=== PATIENT | male | born 1950 | race Caucasian/White ===

== ENCOUNTER 2017-12-18 02:30 | Emergency (ER) | payer MEDICARE, SELFPAY ==
[2017-12-18 02:37] VITALS: BP 163/74; PULSE 83; RESP 20; TEMP 36.8; O2SAT 96
--- NOTE | 2017-12-18 02:41 | DI.RAD.S_ITS ---
PROCEDURE: XR SHOULDER LT MIN 2V INDICATIONS: 67-year-old male with left shoulder pain after fall. TECHNIQUE: 3 views of the shoulder were acquired. COMPARISON: None. FINDINGS: Bones: Mildly displaced comminuted left humeral head and neck fracture is present. Nonacute left third through eighth rib healed fractures are present. No suspicious bony lesions. Soft tissues: No suspicious soft tissue calcifications. There is left axillary artery atherosclerosis. IMPRESSION: 1. Comminuted left humeral head and neck fracture with mild displacement. 2. Multiple nonacute healed left rib fractures. Dictated by: Viktor Arias M.D. on 12/18/2017 at 7:56 Approved by: Viktor Arias M.D. on 12/18/2017 at 7:58
[2017-12-18 02:42] VITALS: PULSE 83; RESP 20; TEMP 36.8; O2SAT 96; BMI 22.2
[2017-12-18] MEDS: HYDROCODONE/ACET 5/325 PREPACK 1 BOTTLE MISC (03:26)
--- NOTE | 2017-12-18 03:26 | ED_ITS ---
HPI - Extremity Injury (Upper) General Chief Complaint: Extremity Injury, Upper Stated Complaint: Lt Shoulder injury/ GLF Time Seen by Provider: 12/18/17 02:52 Source: patient and RN notes reviewed Mode of arrival: ambulatory Limitations: no limitations History of Present Illness HPI narrative: Patient is a 67-year-old male who presents with left shoulder pain. He tripped over 1 of the dog did in the recliner and has coffee table on his left shoulder. He also scraped his left knee but no other injuries. He has no numbness or tingling in his hand. But extreme pain in his shoulder no head injury. MD complaint: injury to: left and shoulder Related Data Previous Rx's Medication Instructions Recorded hydrocodone-acetaminophen [[place]] 1 tab PO Q6H #10 tab 12/18/17 Review of Systems Review of Systems All systems reviewed & are unremarkable except as noted in HPI and below Constitutional Denies chills, Denies fever(s), Denies headache(s), Denies lethargy and Denies weakness ENT Ears, Nose, Mouth, and Throat: Denies headache(s) Cardiovascular Denies chest pain, Denies syncope and Denies dyspnea Respiratory Denies cough and Denies dyspnea Gastrointestinal Gastrointestinal: Denies nausea and Denies vomiting Musculoskeletal Reports as per HPI Integumentary/Breasts Denies erythema, Denies rash and Denies wounds Neurologic Denies syncope, Denies headache(s), Denies focal weakness and Denies weakness PFSH Medical History Diabetes (Acute) End stage renal disease on dialysis (Acute) Fistula of artery (Acute) Social History Smoking Status: Current every day smoker Exam Initial Vital Signs Initial Vital Signs: Vital Signs Temperature 98.3 F 12/18/17 02:37 Pulse Rate 83 12/18/17 02:37 Respiratory Rate 20 12/18/17 02:37 Blood Pressure 163/74 H 12/18/17 02:37 Pulse Oximetry 96 12/18/17 02:37 Const General: cooperative and frail appearing Nutritional Appearance: thin Orientation: alert, awake and oriented x3 HENMT Head: normal to inspection, normocephalic and atraumatic Eyes Pupils: PERRL EOM: EOM intact bilaterally Chest Chest: normal inspection of the chest Resp Effort & Inspection: normal respiratory effort and able to speak in complete sentences Auscultation: clear to auscultation bilaterally GI Palpation: soft Back/Spine/Pelvis Back: normal to inspection and No back tenderness Skin General: no rashes or lesions noted and No erythema Trauma: no lacerations or abrasions Extrem Left upper extremity: shoulder/upper arm Details: abnormal to inspection, tenderness, swelling Location: of the shoulder joint Location: anteriorly, axillary nerve sensory function normal and abnormal ROM; no ecchymosis, elbow/ forearm Details: normal to inspection and wrist Details: normal to inspection, normal vascular exam and radial pulse present Other: Fistula noted on left forearm there is a good thrill Procedures Orthopedic Splinting/Casting Injury #1: Side: left Upper Extremity Injury Location: shoulder Upper Extremity Immobilizer: sling/shoulder immobilizer Additional Comments: Neurovascular intact afterwards Course Orders Ordered: ED Orders 12/18/17 02:41 XR shoulder LT min 2V Stat Discontinued Medications Hydrocodone Bitart/Acetaminophen (Vicodin Prepack) 1 bottle MISC SEEINSTR ONE Stop: 12/18/17 03:10 Last Admin: 12/18/17 03:26 Dose: 1 bottle Vital Signs - 8 hr 12/18/17 02:37 12/18/17 02:42 Temperature 98.3 F 98.3 F Pulse Rate 83 83 Respiratory Rate 20 20 Blood Pressure [Right Arm] 163/74 H Pulse Oximetry 96 96 MDM - Extremity Injury (Upper) Imaging Data left shoulder x ray: Attestation: I personally reviewed and interpreted this imaging study as follows: My impression: Left humeral head neck fracture with complete displacement No other fracture No pneumothorax Discharge Plan Departure Patient Disposition: Home, Self-Care Clinical Impression: Closed fracture of head of left humerus Discharge Date/Time: 12/18/17 03:37 Interventions: ED Discharge Assessment Last Done: 12/18/17 03:36 Instructions: DI for Shoulder Fracture Activity Restrictions/Additional Instructions: *You have been diagnosed with left humeral head fracture *What to do: Keep arm in sling, may remove to shower if needed, ice 20 min at a time to help with swelling *Continue to take medications as directed Hydrocodone 1-2tablet every 6 hr if needed for pain *Follow up with your primary care provider in 2-3 days, call Orthopedics tomorrow to schedule follow-up appoint *Return to ER if you should have numbness, tingling, increased pain or any new, worsening or concerning symptoms Prescriptions: New hydrocodone-acetaminophen [[place]] 5-325 mg tablet 1 tab PO Q6H Qty: 10 RF: 0 Referrals: [facility] [Provider Group] Jovanny Shoemaker MD [Primary Care Provider] -
--- NOTE | 2017-12-18 12:00 | PC.NURSE ---
pharmacy called, reporting pt had refill hydrocodone/acetaminophen 7.5mg , 150pills last week. per dr hill do not fill hydrocodone #10.
== END 2017-12-18 03:37 | disposition home or self-care (01) ==
LOC: ED 03:45
PROVIDERS: Emergency Provider Emergency Medicine; Family Provider Internal Medicine; PCP Internal Medicine
DX: S42.292A Other displaced fracture of upper end of left humerus, initial encounter for closed fracture (principal); W01.0XXA Fall on same level from slipping, tripping and stumbling without subsequent striking against object, initial encounter
CPT/HCPCS: 73030; 99282; 99283

== ENCOUNTER → 2018-02-09 11:53 | Outpatient (CLI) | payer MEDICARE, SELFPAY ==
[2018-02-09 13:09] LABS: Cholesterol 109 mg/dL (140-199); HDL Cholesterol 55 mg/dL (40-60); LDL Cholesterol Calculated 32 mg/dL (<100); Triglycerides 112 mg/dL (35-150)
[2018-02-09 13:40] LABS: Prostate Specific Antigen Scrn 30.5 ng/mL (0.1-4.0)
== END ==
PROVIDERS: Family Provider Internal Medicine; PCP Internal Medicine; Visit Provider Internal Medicine
DX: Z00.00 Encounter for general adult medical examination without abnormal findings (principal); E08.21 Diabetes mellitus due to underlying condition with diabetic nephropathy; I10 Essential (primary) hypertension
CPT/HCPCS: 36415; 80061; G0103

== ENCOUNTER 2018-06-08 16:25 | Emergency (ER) | payer MEDICARE, SELFPAY ==
[2018-06-08] VITALS (11 sets, daily range): BP systolic 118–176; BP diastolic 65–121; PULSE 69–103; RESP 14–20; TEMP 36.8–37.1; O2SAT 93–99; BMI 20.7
--- NOTE | 2018-06-08 18:00 | ED_ITS ---
HPI - Recheck/Abnormal Lab/Rx <NITESH Salmon - Last Filed: 06/08/18 21:57> General Chief Complaint: Recheck/Abnormal Lab/Rx Stated Complaint: LOW HEMOGLOBIN Time Seen by Provider: 06/08/18 17:13 History of Present Illness HPI narrative: 68-year-old male with history of renal insufficiency and is everyday smoker sent here by collateral analyst due to a critical H&H low values. Patient had labs drawn yesterday while he was at dialysis and was told to come to emergency room for further evaluation. He denies any bleeding. He does state that he feels tired however he states that he normally does today after dialysis. He denies any pain or discomfort. he denies any fevers or chills no other concerns or complaints at this time frame. He states he is tolerating p.o. intake. complaint: abnormal lab Related Data Home Medications Medication Instructions Recorded Confirmed atorvastatin 40 mg PO DAILY 06/08/18 06/08/18 hydralazine 100 mg PO TID 06/08/18 06/08/18 hydrocodone-acetaminophen 1 tab PO 5XD PRN 06/08/18 06/08/18 insulin glargine [Lantus U-100 22 units SUBCUT DAILY 06/08/18 06/08/18 Insulin] insulin lispro [Humalog U-100 1 dose SUBCUT PRN PRN 06/08/18 06/08/18 Insulin] isosorbide mononitrate 60 mg PO BID 06/08/18 06/08/18 Allergies Allergy/AdvReac Type Severity Reaction Status Date / Time No Known Drug Allergies Allergy Verified 06/08/18 16:29 Review of Systems <NITESH Salmon - Last Filed: 06/08/18 21:57> Review of Systems Instructed to go to the emergency room due to low H&H Constitutional Denies chills, Denies fever(s), Denies lethargy and Denies weakness Eyes Denies change in vision, Denies eye discharge, Denies irritation and Denies loss of vision ENT Ears, Nose, Mouth, and Throat: Denies change in voice, Denies neck pain and Denies sore throat Cardiovascular Denies chest pain, Denies irregular heart rhythm, Denies lightheadedness, Denies palpitations, Denies dyspnea, Denies dyspnea on exertion and Denies orthopnea Respiratory Denies cough, Denies dyspnea, Denies dyspnea on exertion and Denies wheezing Gastrointestinal Gastrointestinal: Denies abdominal pain, Denies change in bowel habits, Denies diarrhea, Denies nausea and Denies vomiting Musculoskeletal Denies neck pain Integumentary/Breasts Denies pruritus, Denies erythema, Denies rash and Denies wounds Neurologic Denies confusion, Denies loss of vision and Denies weakness Psychiatric Denies anxiety, Denies confusion, Denies depression, Denies homicidal ideation and Denies suicidal ideation Endocrine Denies palpitations Hematologic/Lymphatic Denies easy bruising Allergic/Immunologic Denies wheezing Exam <PUMA SalmonP - Last Filed: 06/08/18 21:57> Initial Vital Signs Initial Vital Signs: Vital Signs Temperature 98.3 F 06/08/18 16:29 Pulse Rate 83 06/08/18 16:29 Respiratory Rate 15 06/08/18 16:29 Blood Pressure 129/65 06/08/18 16:29 Pulse Oximetry 99 06/08/18 16:29 Const General: cooperative and well developed Nutritional Appearance: well nourished Orientation: alert, awake, oriented x3 and not confused HENAR Mouth: oral mucosae normal and moist mucous membranes Eyes Conjunctivae: conjunctivae normal Sclera: sclerae normal Pupils: PERRL EOM: EOM intact bilaterally Resp Effort & Inspection: normal respiratory effort, able to speak in complete sentences, no respiratory distress and no use of accessory muscles Auscultation: clear to auscultation bilaterally, no rales, no rhonchi and no wheezes Cardio Rate: regular rate Rhythm: regular rhythm Heart Sounds: no click, no gallops, no murmurs and no rubs Skin General: no rashes or lesions noted, No jaundice and No petechiae Neuro General: alert, oriented x3, gait normal and no focal motor deficits Speech: speech normal Extrem General: full ROM, no clubbing, cyanosis or edema, no pedal edema and no calf tenderness <Mohan Lee DO - Last Filed: 06/08/18 23:20> Initial Vital Signs Initial Vital Signs: Vital Signs Temperature 98.3 F 06/08/18 16:29 Pulse Rate 83 06/08/18 16:29 Respiratory Rate 15 06/08/18 16:29 Blood Pressure 129/65 06/08/18 16:29 Pulse Oximetry 99 06/08/18 16:29 Course <PUMA SalmonP - Last Filed: 06/08/18 21:57> Orders Ordered: ED Orders 06/08/18 18:15 Complete Blood Count AUTO DIFF Stat Comprehensive Metabolic Panel Stat Packed Cells Stat Type and Screen Stat 06/08/18 22:55 Complete Blood Count AUTO DIFF Stat Vital Signs - 8 hr 06/08/18 16:29 06/08/18 18:00 06/08/18 19:10 Temperature 98.3 F Pulse Rate 83 77 103 H Respiratory Rate 15 20 Blood Pressure 129/65 Blood Pressure [Right Arm] 134/98 H Pulse Oximetry 99 98 93 06/08/18 19:43 06/08/18 20:05 06/08/18 20:44 Temperature 98.6 F 98.5 F 98.7 F Pulse Rate 70 77 75 Respiratory Rate 14 15 15 Blood Pressure 176/121 H 132/93 H Blood Pressure [Right Arm] 139/93 H Pulse Oximetry 97 06/08/18 21:04 06/08/18 21:07 06/08/18 21:26 Temperature 98.7 F 98.7 F 98.4 F Pulse Rate 77 70 69 Respiratory Rate 16 18 16 Blood Pressure 149/104 H 127/94 H Blood Pressure [Right Arm] 149/104 H Pulse Oximetry 97 06/08/18 21:53 06/08/18 22:20 Temperature 98.5 F 98.6 F Pulse Rate 69 70 Respiratory Rate 15 16 Blood Pressure 139/79 Blood Pressure [Right Arm] 118/99 H Pulse Oximetry 98 <Mohan Lee DO - Last Filed: 06/08/18 23:20> Orders Ordered: ED Orders 06/08/18 18:15 Complete Blood Count AUTO DIFF Stat Comprehensive Metabolic Panel Stat Packed Cells Stat Type and Screen Stat 06/08/18 22:55 Complete Blood Count AUTO DIFF Stat Vital Signs - 8 hr 06/08/18 16:29 06/08/18 18:00 06/08/18 19:10 Temperature 98.3 F Pulse Rate 83 77 103 H Respiratory Rate 15 20 Blood Pressure 129/65 Blood Pressure [Right Arm] 134/98 H Pulse Oximetry 99 98 93 06/08/18 19:43 06/08/18 20:05 06/08/18 20:44 Temperature 98.6 F 98.5 F 98.7 F Pulse Rate 70 77 75 Respiratory Rate 14 15 15 Blood Pressure 176/121 H 132/93 H Blood Pressure [Right Arm] 139/93 H Pulse Oximetry 97 06/08/18 21:04 06/08/18 21:07 06/08/18 21:26 Temperature 98.7 F 98.7 F 98.4 F Pulse Rate 77 70 69 Respiratory Rate 16 18 16 Blood Pressure 149/104 H 127/94 H Blood Pressure [Right Arm] 149/104 H Pulse Oximetry 97 06/08/18 21:53 06/08/18 22:20 Temperature 98.5 F 98.6 F Pulse Rate 69 70 Respiratory Rate 15 16 Blood Pressure 139/79 Blood Pressure [Right Arm] 118/99 H Pulse Oximetry 98 MDM - Recheck/Abnormal Lab/Rx <NITESH Salmon - Last Filed: 06/08/18 21:57> Lab Data Result diagrams: 06/08/18 22:55 06/08/18 18:15 Lab Results 06/08/18 06/08/18 06/08/18 Range/Units 18:15 18:15 18:15 WBC 7.6 (4.5-11.0) X10^3/uL RBC 1.85 L (4.5-5.9) X10^6/uL Hgb 6.2 L* (13.5-17.5) g/dL Hct 18.4 L* (41-53) % MCV 99.7 (80-100) fL MCH 33.3 (26-34) PG MCHC 33.4 (30-36) % RDW 14.8 (11.6-14.8) % Plt Count 355 (150-400) X10^3/uL Neut % (Auto) 67.0 (50-75) % Lymph % (Auto) 20.3 L (25-40) % [place] % (Auto) 6.1 (3-14) % Eos % (Auto) 5.6 H (2-4) % Baso % (Auto) 1.0 (0-2) % Neut # (Auto) 5100 (8853-6353) /uL Sodium 142 (137-145) mmol/L Potassium 4.0 (3.4-5.1) mmol/L Chloride 94 L (98-107) mmol/L Carbon Dioxide 34 H (22-32) mmol/L BUN 24 H (9-20) mg/dL Creatinine 5.00 H (0.66-1.25) mg/dL Estimated GFR 11.6 L (>60) mL/min BUN/Creatinine Ratio 4.8 L (6-22) Glucose 248 H (80-110) mg/dL Calcium 8.2 L (8.4-10.2) mg/dL Total Bilirubin 0.2 (0.2-1.3) mg/dL AST 16 L (17-59) IU/L ALT 25 (21-72) IU/L Alkaline Phosphatase 56 (38-126) U/L Total Protein 6.2 L (6.3-8.2) g/dL Albumin 3.7 (3.5-5.0) g/dL Globulin 2.5 (1.7-4.1) g/dL Albumin/Globulin Ratio 1.5 (1.0-2.8) Blood Type O Positive Antibody Screen Negative Crossmatch See Detail 06/08/18 Range/Units 22:55 WBC 7.1 (4.5-11.0) X10^3/uL RBC 2.74 L (4.5-5.9) X10^6/uL Hgb 9.2 L (13.5-17.5) g/dL Hct 25.9 L (41-53) % MCV 94.3 D (80-100) fL MCH 33.5 (26-34) PG MCHC 35.6 (30-36) % RDW 17.1 H (11.6-14.8) % Plt Count 355 (150-400) X10^3/uL Neut % (Auto) 61.0 (50-75) % Lymph % (Auto) 25.4 (25-40) % [place] % (Auto) 5.7 (3-14) % Eos % (Auto) 6.6 H (2-4) % Baso % (Auto) 1.3 (0-2) % Neut # (Auto) 4300 (5171-8910) /uL Sodium (137-145) mmol/L Potassium (3.4-5.1) mmol/L Chloride (98-107) mmol/L Carbon Dioxide (22-32) mmol/L BUN (9-20) mg/dL Creatinine (0.66-1.25) mg/dL Estimated GFR (>60) mL/min BUN/Creatinine Ratio (6-22) Glucose (80-110) mg/dL Calcium (8.4-10.2) mg/dL Total Bilirubin (0.2-1.3) mg/dL AST (17-59) IU/L ALT (21-72) IU/L Alkaline Phosphatase (38-126) U/L Total Protein (6.3-8.2) g/dL Albumin (3.5-5.0) g/dL Globulin (1.7-4.1) g/dL Albumin/Globulin Ratio (1.0-2.8) Blood Type Antibody Screen Crossmatch MDM Narrative Medical decision making narrative: CBC shows H&H of 6 and 18. He was Ordered 2 units of packed red blood cells. Originally desired to admit patient to inpatient for to for administration of the packed red blood cells and repeat of the CBC in the morning. hospice was not comfortable with patient be admitted to the inpatient [facility] of due to patient currently being on dialysis. blood was administered in the emergency room. Repeat CBC is ordered after administration of packed red blood cells. Due to change of shift care is turned over to Dr. Lee for further evaluation <Mohan Lee, DO - Last Filed: 06/08/18 23:20> Lab Data Attestation: I reviewed the patient's lab results. Lab Results 06/08/18 06/08/18 06/08/18 Range/Units 18:15 18:15 18:15 WBC 7.6 (4.5-11.0) X10^3/uL RBC 1.85 L (4.5-5.9) X10^6/uL Hgb 6.2 L* (13.5-17.5) g/dL Hct 18.4 L* (41-53) % MCV 99.7 (80-100) fL MCH 33.3 (26-34) PG MCHC 33.4 (30-36) % RDW 14.8 (11.6-14.8) % Plt Count 355 (150-400) X10^3/uL Neut % (Auto) 67.0 (50-75) % Lymph % (Auto) 20.3 L (25-40) % [place] % (Auto) 6.1 (3-14) % Eos % (Auto) 5.6 H (2-4) % Baso % (Auto) 1.0 (0-2) % Neut # (Auto) 5100 (5431-0772) /uL Sodium 142 (137-145) mmol/L Potassium 4.0 (3.4-5.1) mmol/L Chloride 94 L (98-107) mmol/L Carbon Dioxide 34 H (22-32) mmol/L BUN 24 H (9-20) mg/dL Creatinine 5.00 H (0.66-1.25) mg/dL Estimated GFR 11.6 L (>60) mL/min BUN/Creatinine Ratio 4.8 L (6-22) Glucose 248 H (80-110) mg/dL Calcium 8.2 L (8.4-10.2) mg/dL Total Bilirubin 0.2 (0.2-1.3) mg/dL AST 16 L (17-59) IU/L ALT 25 (21-72) IU/L Alkaline Phosphatase 56 (38-126) U/L Total Protein 6.2 L (6.3-8.2) g/dL Albumin 3.7 (3.5-5.0) g/dL Globulin 2.5 (1.7-4.1) g/dL Albumin/Globulin Ratio 1.5 (1.0-2.8) Blood Type O Positive Antibody Screen Negative Crossmatch See Detail 06/08/18 Range/Units 22:55 WBC 7.1 (4.5-11.0) X10^3/uL RBC 2.74 L (4.5-5.9) X10^6/uL Hgb 9.2 L (13.5-17.5) g/dL Hct 25.9 L (41-53) % MCV 94.3 D (80-100) fL MCH 33.5 (26-34) PG MCHC 35.6 (30-36) % RDW 17.1 H (11.6-14.8) % Plt Count 355 (150-400) X10^3/uL Neut % (Auto) 61.0 (50-75) % Lymph % (Auto) 25.4 (25-40) % [place] % (Auto) 5.7 (3-14) % Eos % (Auto) 6.6 H (2-4) % Baso % (Auto) 1.3 (0-2) % Neut # (Auto) 4300 (3275-9508) /uL Sodium (137-145) mmol/L Potassium (3.4-5.1) mmol/L Chloride (98-107) mmol/L Carbon Dioxide (22-32) mmol/L BUN (9-20) mg/dL Creatinine (0.66-1.25) mg/dL Estimated GFR (>60) mL/min BUN/Creatinine Ratio (6-22) Glucose (80-110) mg/dL Calcium (8.4-10.2) mg/dL Total Bilirubin (0.2-1.3) mg/dL AST (17-59) IU/L ALT (21-72) IU/L Alkaline Phosphatase (38-126) U/L Total Protein (6.3-8.2) g/dL Albumin (3.5-5.0) g/dL Globulin (1.7-4.1) g/dL Albumin/Globulin Ratio (1.0-2.8) Blood Type Antibody Screen Crossmatch MDM Narrative Medical decision making narrative: Received turned over from day provider. Patient receiving a 2nd unit of packed red blood cells. Repeat H&H show improvement. I feel that no further blood products are needed. Patient states that he does feel better. He is not having any chest pain or shortness of breath. He does have a dialysis appointment scheduled for 1000 hr on 06/09. Patient was given return precautions. He states that he felt much better and would like to go home. He expressed understanding and agreement this plan. Discharge Plan Departure Patient Disposition: Home Clinical Impression: Chronic renal insufficiency, Anemia Interventions: ED Discharge Assessment Last Done: 06/08/18 19:11 Instructions: DI for Kidney Failure Activity Restrictions/Additional Instructions: hemoglobin hematocrit was low tonight. year given a blood in the emergency room to raise up these levels. Follow up with her primary care provider in the next few days for re-evaluation. Dialysis as scheduled. For any worsening symptoms return emergency room. Prescriptions: No Action atorvastatin 40 mg tablet 40 mg PO DAILY RF: 0 insulin glargine [Lantus U-100 Insulin] 100 unit/mL solution 22 units subcut DAILY RF: 0 isosorbide mononitrate 60 mg tablet extended release 24 hr 60 mg PO BID RF: 0 hydrocodone-acetaminophen 7.5-325 mg tablet 1 tab PO 5XD PRN (Reason: pain) RF: 0 hydralazine 100 mg tablet 100 mg PO TID RF: 0 insulin lispro [Humalog U-100 Insulin] 100 unit/mL solution 1 dose subcut PRN PRN (Reason: sliding scale) RF: 0 Referrals: Jovanny Shoemaker MD [Primary Care Provider] -
--- NOTE | 2018-06-08 18:25 | PC.NURSE ---
[facility] called by Emily and after internet search. iv inserted below iv fistula. graft. pt reported that is where the iv was inserted during his surgery. Pt has a positive bruit and thrill on b/l grafts. (right and left arm)
[2018-06-08 18:29] LABS: Add Manual Diff / Slide Review NO; Eosinophils Percent Auto 5.6 % (2-4); Hemoglobin 6.2 g/dL (13.5-17.5); Lymphocytes Percent Auto 20.3 % (25-40); Mean Corpuscular HGB Conc 33.4 % (30-36); Mean Corpuscular Hemoglobin 33.3 PG (26-34); Mean Corpuscular Volume 99.7 fL (80-100); Monocytes Percent Auto 6.1 % (3-14); Neutrophils Absolute Auto 5100 /uL (1500-7000); Platelet Count 355 X10^3/uL (150-400); Red Blood Cell Count 1.85 X10^6/uL (4.5-5.9); Red Cell Distribution Width 14.8 % (11.6-14.8); White Blood Cell Count 7.6 X10^3/uL (4.5-11.0)
[2018-06-08 18:30] LABS: Hematocrit 18.4 % (41-53)
[2018-06-08 18:38] LABS: Alanine Aminotransferase 25 IU/L (21-72); Albumin 3.7 g/dL (3.5-5.0); Albumin Globulin Ratio 1.5 (1.0-2.8); Alkaline Phosphatase 56 U/L (38-126); Aspartate Aminotransferase 16 IU/L (17-59); BUN Creatinine Ratio 4.8 (6-22); Bilirubin Total 0.2 mg/dL (0.2-1.3); Blood Urea Nitrogen 24 mg/dL (9-20); Calcium 8.2 mg/dL (8.4-10.2); Carbon Dioxide 34 mmol/L (22-32); Chloride 94 mmol/L (98-107); Estimated Glomerular Filt Rate 11.6 mL/min (>60); Globulin 2.5 g/dL (1.7-4.1); Glucose 248 mg/dL (80-110); HEMOLYSIS < 15 (0-50); Sodium 142 mmol/L (137-145); Total Protein 6.2 g/dL (6.3-8.2)
--- NOTE | 2018-06-08 22:20 | PC.NURSE ---
second unit of blood infused. Pt reports I feel better. I didnt even realize I was so tired. I have energy now. Pt is sitting calmly on stretcher. denies needs tt his time.
[2018-06-08 23:05] LABS: Add Manual Diff / Slide Review NO; Basophils Percent Auto 1.3 % (0-2); Eosinophils Percent Auto 6.6 % (2-4); Hematocrit 25.9 % (41-53); Hemoglobin 9.2 g/dL (13.5-17.5); Lymphocytes Percent Auto 25.4 % (25-40); Mean Corpuscular HGB Conc 35.6 % (30-36); Mean Corpuscular Hemoglobin 33.5 PG (26-34); Mean Corpuscular Volume 94.3 fL (80-100); Monocytes Percent Auto 5.7 % (3-14); Neutrophils Absolute Auto 4300 /uL (1500-7000); Platelet Count 355 X10^3/uL (150-400); Red Blood Cell Count 2.74 X10^6/uL (4.5-5.9); Red Cell Distribution Width 17.1 % (11.6-14.8); White Blood Cell Count 7.1 X10^3/uL (4.5-11.0)
== END 2018-06-08 23:28 | disposition home or self-care (01) ==
PROVIDERS: Nurse Practitioner Family; Emergency Provider Emergency Medicine; Family Provider Internal Medicine; PCP Internal Medicine
DX: D64.9 Anemia, unspecified (principal); N18.9 Chronic kidney disease, unspecified
CPT/HCPCS: 36415; 36430; 80053; 85025; 86850; 86900; 86901; 99283; P9016

== ENCOUNTER 2018-07-22 18:29 | Emergency (ER) | payer MEDICARE, OTHER, SELFPAY ==
[2018-07-22 18:37] VITALS: BP 146/100; PULSE 80; RESP 16; TEMP 36.9; O2SAT 96
--- NOTE | 2018-07-22 19:04 | ED.RECABL ---
HPI - Recheck/Abnormal Lab/Rx <JOSE ENRIQUE Mora - Last Filed: 07/22/18 20:23> General Chief Complaint: Recheck/Abnormal Lab/Rx Stated Complaint: Needs new dressing, post surgery Time Seen by Provider: 07/22/18 18:51 Source: patient Mode of arrival: ambulatory Limitations: no limitations History of Present Illness HPI narrative: Patient is a 68-year-old male smoker with history of renal impairment who presents with a chief complaint of a postoperative problem with his new fistula. He had a fistula placed on Monday at [place] and states that they use paper tape which she had a reaction to. He removed his dressing over 24 hr postsurgery. He noted some oozing bleeding from the top portion of his surgical incision. He placed some bandages on it and states he needs to have them changed. He is not a surgeon know of his bleeding postop. He states that he would like to have his dressing changed. Related Data Home Medications Medication Instructions Recorded Confirmed atorvastatin 40 mg PO DAILY 06/08/18 06/08/18 hydralazine 100 mg PO TID 06/08/18 06/08/18 hydrocodone-acetaminophen 1 tab PO 5XD PRN 06/08/18 06/08/18 insulin glargine [Lantus U-100 22 units SUBCUT DAILY 06/08/18 06/08/18 Insulin] insulin lispro [Humalog U-100 1 dose SUBCUT PRN PRN 06/08/18 06/08/18 Insulin] isosorbide mononitrate 60 mg PO BID 06/08/18 06/08/18 Allergies Allergy/AdvReac Type Severity Reaction Status Date / Time No Known Drug Allergies Allergy Verified 06/08/18 16:29 Review of Systems <JOSE ENRIQUE Mora - Last Filed: 07/22/18 20:23> Review of Systems GENERAL: Denies chills, fatigue, malaise, fever, sweats. HEENT: Denies sinus pain, ear pain, sore throat, difficulty swallowing, dizziness. RESPIRATORY: Denies dyspnea, cough, wheezing, hemoptysis, sputum. CARDIOVASCULAR: Denies chest pain, palpitations, orthopnea, edema, GASTROINTESTINAL: Denies nausea, vomiting, abdominal pain, diarrhea, constipation, melena. : Denies dysuria, frequency, incontinence, hematuria, urinary retention. MUSCULOSKELETAL: See HPI SKIN: See HPI NEUROLOGIC: Denies weakness, headache, numbness, change in speech, confusion, seizures, incoordination. PSYCHIATRIC: No concerning psychosocial issues. 12 point review of systems is negative except for those stated above Exam <JOSE ENRIQUE Mora - Last Filed: 07/22/18 20:23> Narrative Exam Narrative: GENERAL: Thin male in no acute distress HEAD: Atraumatic. Normocephalic. No temporal or scalp tenderness. EYES: Pupils equal round and reactive. Extraocular motions intact. No scleral icterus. No injection or drainage. ENT: Nose without bleeding, purulent drainage or septal hematoma. Throat without erythema, tonsillar hypertrophy or exudate. Uvula midline. Airway patent. NECK: Trachea midline. No JVD or lymphadenopathy. Supple, nontender, no meningeal signs. CARDIOVASCULAR: Regular rate and rhythm RESPIRATORY: No cough or increased respiratory effort EXTREMITIES: Positive radial pulse noted right arm. palpable thrill and bruit noted fistula right am. Palpable hematoma surrounding incision site 2-3 cm in all direction. No active bleeding. No spreading erythema or drainage noted. BACK: Nontender without deformity or crepitance. No flank tenderness. NEURO: AOx3. SKIN: Surgical site noted right upper arm. Extending length of upper arm. Ecchymosis noted surrounding incision. No spreading erythema or drainage noted. No active bleeding. Noted three 1 cm tape low at distal aspect of wound. Initial Vital Signs Initial Vital Signs: Vital Signs Temperature 98.4 F 07/22/18 18:37 Pulse Rate 80 07/22/18 18:37 Respiratory Rate 16 07/22/18 18:37 Blood Pressure 146/100 H 07/22/18 18:37 Pulse Oximetry 96 07/22/18 18:37 <Romeo Verduzco MD - Last Filed: 07/23/18 00:38> Initial Vital Signs Initial Vital Signs: Vital Signs Temperature 98.4 F 07/22/18 18:37 Pulse Rate 80 07/22/18 18:37 Respiratory Rate 16 07/22/18 18:37 Blood Pressure 146/100 H 07/22/18 18:37 Pulse Oximetry 96 07/22/18 18:37 Course <JOSE ENRIQUE Mora - Last Filed: 07/22/18 20:23> Vital Signs - 8 hr 07/22/18 18:37 07/22/18 20:07 Temperature 98.4 F 98.3 F Pulse Rate 80 76 Respiratory Rate 16 14 Blood Pressure 146/100 H 166/122 H Pulse Oximetry 96 92 <Romeo Verduzco MD - Last Filed: 07/23/18 00:38> Vital Signs - 8 hr 07/22/18 18:37 07/22/18 20:07 Temperature 98.4 F 98.3 F Pulse Rate 80 76 Respiratory Rate 16 14 Blood Pressure 146/100 H 166/122 H Pulse Oximetry 96 92 MDM - Recheck/Abnormal Lab/Rx <JOSE M Mora- - Last Filed: 07/22/18 20:23> [facility] Narrative Medical decision making narrative: The patient presents with a chief complaint of concern for need of a dressing change at his fistula site. Examination indicates no signs or symptoms of infection but an active hematoma. I had Dr. Verduzco evaluate the patient as well to check his wound. Patient is neurovascularly intact with no active bleeding from the site. We discussed at length following up with his surgeon tomorrow. His dressing was replaced. I discussed at length return precautions including severe bleeding, chest pain or shortness of breath. Patient stated understanding. I discussed monitoring for signs and symptoms of infection. Patient stated understanding. Patient states understanding return precautions and states he will follow up with surgeon. Patient has no questions or concerns upon discharge. Discharge Plan Departure Patient Disposition: Home Clinical Impression: Postoperative wound hematoma Discharge Date/Time: 07/22/18 20:09 Interventions: ED Discharge Assessment Last Done: 07/22/18 20:07 Instructions: DI for Hematoma (Bruise), DI for Arteriovenous Fistula for Dialysis Activity Restrictions/Additional Instructions: Please call your surgeon tomorrow and follow-up with them. Please monitor you new dressing for bleeding. Please come back to the emergency department for any acute concerns. Prescriptions: No Action atorvastatin 40 mg tablet 40 mg PO DAILY RF: 0 insulin glargine [Lantus U-100 Insulin] 100 unit/mL solution 22 units subcut DAILY RF: 0 isosorbide mononitrate 60 mg tablet extended release 24 hr 60 mg PO BID RF: 0 hydrocodone-acetaminophen 7.5-325 mg tablet 1 tab PO 5XD PRN (Reason: pain) RF: 0 hydralazine 100 mg tablet 100 mg PO TID RF: 0 insulin lispro [Humalog U-100 Insulin] 100 unit/mL solution 1 dose subcut PRN PRN (Reason: sliding scale) RF: 0 Referrals: Jovanny Shoemaker MD [Primary Care Provider] - <Romeo Verduzco MD - Last Filed: 07/23/18 00:38> [facility] Attending Cosavtarature Attestation: I evaluated this patient in conjunction with the primary provider. I agree with the assessment, and treatment plan.
--- NOTE | 2018-07-22 19:52 | PC.NURSE ---
Cleansed patients incision to clean up old blood. Dressed with abd pad and kerlix.
[2018-07-22 20:07] VITALS: BP 166/122; PULSE 76; RESP 14; TEMP 36.8; O2SAT 92
== END 2018-07-22 20:09 | disposition home or self-care (01) ==
PROVIDERS: Emergency Provider Nurse Practitioner Family; Family Provider Internal Medicine; PCP Internal Medicine
DX: L76.22 Postprocedural hemorrhage of skin and subcutaneous tissue following other procedure (principal)
CPT/HCPCS: 99282

== ENCOUNTER 2018-11-25 20:43 | Emergency (ER) | payer MEDICARE, OTHER, SELFPAY ==
[2018-11-25 20:48] VITALS: BP 175/95; PULSE 71; RESP 20; TEMP 36.8; O2SAT 95
[2018-11-25] MEDS: TET,DIPH,PERTUSS(ACELL),VAC/PF 0.5 ML SYRINGE IM (20:54)
--- NOTE | 2018-11-25 21:08 | ED_ITS ---
HPI - Extremity Injury (Upper) General Chief Complaint: Wound/Laceration Stated Complaint: fistula L arm, states nail snagged L arm, wound Time Seen by Provider: 11/25/18 20:48 Source: patient Mode of arrival: ambulatory Limitations: no limitations History of Present Illness HPI narrative: 68-year-old male smoker with history of end-stage renal disease on dialysis Monday, diabetes, hypertension, hyperlipidemia presents with a chief complaint a superficial laceration and skin tear to left lateral forearm earlier today. He is most worried about his tetanus. He was walking and caught his arm on the head of a nail. There is minimal injury and it is far from his fistula. He is not dizzy weak or lightheaded. MD complaint: injury to: left and forearm Other injuries: none Handedness: right Place: home Severity: mild Relieving factors: none Exacerbating factors: none Context: direct blow and laceration Associated symptoms: denies other symptoms Related Data Home Medications Medication Instructions Recorded Confirmed atorvastatin 40 mg PO DAILY 06/08/18 06/08/18 hydralazine 100 mg PO TID 06/08/18 06/08/18 hydrocodone-acetaminophen 1 tab PO 5XD PRN 06/08/18 06/08/18 insulin glargine [Lantus U-100 22 units SUBCUT DAILY 06/08/18 06/08/18 Insulin] insulin lispro [Humalog U-100 1 dose SUBCUT PRN PRN 06/08/18 06/08/18 Insulin] isosorbide mononitrate 60 mg PO BID 06/08/18 06/08/18 Allergies Allergy/AdvReac Type Severity Reaction Status Date / Time No Known Drug Allergies Allergy Verified 06/08/18 16:29 Review of Systems Constitutional Denies chills, Denies fever(s), Denies lethargy and Denies weakness Eyes Denies change in vision, Denies eye discharge, Denies irritation and Denies loss of vision ENT Ears, Nose, Mouth, and Throat: Denies change in voice, Denies neck pain and Denies sore throat Cardiovascular Denies chest pain, Denies irregular heart rhythm, Denies lightheadedness, Denies palpitations, Denies dyspnea, Denies dyspnea on exertion and Denies orthopnea Respiratory Denies cough, Denies dyspnea, Denies dyspnea on exertion and Denies wheezing Gastrointestinal Gastrointestinal: Denies abdominal pain, Denies change in bowel habits, Denies diarrhea, Denies nausea and Denies vomiting Genitourinary Denies hematuria, Denies flank pain, Denies urinary incontinence and Denies urinary urgency Musculoskeletal Denies neck pain Integumentary/Breasts Denies pruritus, Denies erythema, Denies rash and Reports wounds Neurologic Denies confusion, Denies loss of vision and Denies weakness Psychiatric Denies anxiety, Denies confusion, Denies depression, Denies homicidal ideation and Denies suicidal ideation Endocrine Denies palpitations Hematologic/Lymphatic Denies easy bruising Allergic/Immunologic Denies wheezing FORMERLY [facility], 1928–1983 Medical History Diabetes (Acute) End stage renal disease on dialysis (Acute) Fistula of artery (Acute) Social History Smoking Status: Current every day smoker Social History Smoking Status: Current every day smoker Exam Narrative Exam Narrative: GEN: AOx3 and in mild distress, chronically ill 68M EYES: Pupils are equal, round, and reactive to light and accommodation. Extraoccular muscles are intact bilaterally. There is no subconjunctival hemorrhage or exudate. CHEST: Lungs are clear to auscultation bilaterally and free of wheezes, rales, or rhonchi. Heart rate is regular rhythm, there are no murmurs, clicks, rubs, or gallops. There is no chest wall tenderness. ABD: Abdomen is soft and nontender. There is no guarding or rebound. Bowel sounds are normal in all 4 quadrants. There is no mass or organomegaly. EXT: Full painless ROM of all extremities with no loss of sensation or strength. SKIN: two small superficial abrasions to L lateral forearm. Minimal bleeding, nothing deep enough to suture. Warm, pink, and dry. No erythema or rash Initial Vital Signs Initial Vital Signs: Vital Signs Temperature 98.2 F 11/25/18 20:48 Pulse Rate 71 11/25/18 20:48 Respiratory Rate 20 11/25/18 20:48 Blood Pressure 175/95 H 11/25/18 20:48 Pulse Oximetry 95 11/25/18 20:48 Course Orders Ordered: Discontinued Medications Diphtheria/Tetanus/Acell Pertussis (Adacel) 0.5 ml IM .ONCE ONE Stop: 11/25/18 20:50 Last Admin: 11/25/18 20:54 Dose: 0.5 ml Vital Signs - 8 hr 11/25/18 20:48 Temperature 98.2 F Pulse Rate 71 Respiratory Rate 20 Blood Pressure 175/95 H Pulse Oximetry 95 Discharge Plan Departure Patient Disposition: Home Clinical Impression: Laceration Instructions: DI for Minor Laceration Activity Restrictions/Additional Instructions: *You have been diagnosed with [ superficial laceration of left forearm ] *What to do: *Continue to take medications as directed *Follow up with your primary care provider in 2-3 days, call for an appointment. Let them know you were seen in the Emergency Department and that we ask that you be seen in follow up *Return to ER if you should have any new, worsening or concerning symptoms, such as [ swelling, redness, increased pain, drainange or other bothersome symptoms] Prescriptions: No Action atorvastatin 40 mg tablet 40 mg PO DAILY RF: 0 insulin glargine [Lantus U-100 Insulin] 100 unit/mL solution 22 units subcut DAILY RF: 0 isosorbide mononitrate 60 mg tablet extended release 24 hr 60 mg PO BID RF: 0 hydrocodone-acetaminophen 7.5-325 mg tablet 1 tab PO 5XD PRN (Reason: pain) RF: 0 hydralazine 100 mg tablet 100 mg PO TID RF: 0 insulin lispro [Humalog U-100 Insulin] 100 unit/mL solution 1 dose subcut PRN PRN (Reason: sliding scale) RF: 0 Referrals: Jovanny Shoemaker MD [Primary Care Provider] -
== END 2018-11-25 21:09 | disposition home or self-care (01) ==
PROVIDERS: Emergency Provider Emergency Medicine; PCP Internal Medicine
DX: S51.812A Laceration without foreign body of left forearm, initial encounter (principal); W45.0XXA Nail entering through skin, initial encounter; Z23 Encounter for immunization
CPT/HCPCS: 90471; 99283; 90715